=== PATIENT | female | born 2000 | race Caucasian/White ===

== ENCOUNTER 2020-10-15 13:22 | Emergency (ER) | payer MEDICAID ==
[~2020-10-15] VITALS: Ht 157.5 cm; Wt 65.0 kg
[2020-10-15 13:40] VITALS: BP 127/68
[2020-10-15] MEDS ORDERED: ACETAMINOPHEN 325MG TABLET PO STA (14:17)
[2020-10-15] MEDS ORDERED: IBUPROFEN 600MG TABLET PO ONE (14:30)
[2020-10-15 14:53] LABS: BASOPHILS % 0.4 % (0.0-2.0); HEMATOCRIT. 35.9 % (36.0-48.0); HEMOGLOBIN. 12.1 g/dL (12.0-16.0); LYMPHOCYTES % 15.7 % (20.0-50.0); MEAN CORPUSCULAR HEMOGLOBIN 27.5 pg (28.0-32.0); MEAN CORPUSCULAR VOLUME 81.9 fL (81.0-99.0); MEAN PLATELET VOLUME 9.6 fl (7.4-10.4); MONOCYTES % 3.2 % (2.0-8.0); NEUTROPHILS % 80.7 % (40.0-76.0); PLATELET 173 x1000/uL (130-400); RED BLOOD CELL COUNT 4.38 mill/uL (4.2-5.4)
[2020-10-15 14:57] LABS: CHLORIDE 109 mEq/L (98-107)
[2020-10-15 15:07] LABS: HCG SCREEN POSITIVE
[2020-10-16] MEDS ORDERED: IBUP-2030 PO (03:53)
[2020-10-16] MEDS ORDERED: FERR325T23 PO (03:53)
[2020-10-16] MEDS ORDERED: NORE0.3520 MT (03:53)
== END 2020-10-15 15:36 | disposition home or self-care (01) ==
LOC: ER 13:22
DX: O26.93 Pregnancy related conditions, unspecified, third trimester (principal); R10.9 Unspecified abdominal pain; N93.9 Abnormal uterine and vaginal bleeding, unspecified; Z3A.36 36 weeks gestation of pregnancy
CPT/HCPCS: 36415; 76805; 80053; 81025; 84703; 85025; 93005; 99285; Z7610

== ENCOUNTER 2020-10-15 16:05 | Inpatient (IN) | payer MEDICAID ==
[~2020-10-15] VITALS: Ht 157.5 cm; Wt 65.8 kg
[2020-10-15] MEDS ORDERED: BUTORPHANOL TARTRATE 2 MG/ML VIAL IV PRN (16:30)
[2020-10-15] MEDS ORDERED: DEXT 5%/LR + PITOCIN 20UNITS/L 1,000 ML IV SCH ×2 (16:30→18:15)
[2020-10-15] MEDS ORDERED: METHYLERGONOVINE MALEATE 0.2 MG/ML IM PRN (16:30)
[2020-10-15] MEDS ORDERED: LACTATED RINGERS 1,000 ML IV SCH (16:30)
[2020-10-15] MEDS ORDERED: LIDOCAINE HCL 1% 20ML VIAL (Pyxis) INJ INFIL SCH (16:30)
[2020-10-15 16:53] LABS: BASOPHILS % 0.2 % (0.0-2.0); EOSINOPHILS % 0.1 % (0.0-5.0); HEMATOCRIT. 35.1 % (36.0-48.0); HEMOGLOBIN. 11.6 g/dL (12.0-16.0); LYMPHOCYTES % 15.1 % (20.0-50.0); MEAN CORPUSCULAR HEMOGLOBIN 27.1 pg (28.0-32.0); MEAN CORPUSCULAR VOLUME 81.9 fL (81.0-99.0); MEAN PLATELET VOLUME 9.7 fl (7.4-10.4); MONOCYTES % 3.1 % (2.0-8.0); NEUTROPHILS % 81.5 % (40.0-76.0); PLATELET 173 x1000/uL (130-400); RED BLOOD CELL COUNT 4.29 mill/uL (4.2-5.4); RED CELL DISTRIBUTION WIDTH 13.7 % (11.6-14.6)
[2020-10-15] MEDS ORDERED: PENICILLIN G POTASSIUM 5 MMU in DEXT 5% WATER 100 ML IV NR (17:00)
[2020-10-15 17:03] LABS: PARTIAL THROMBOPLASTIN TIME 32.2 sec (23.4-31.0); PROTHROMBIN TIME 10.4 sec (9.6-11.0)
[2020-10-15 17:15] LABS: CLARITY URINE CLEAR (CLEAR); COLOR URINE YELLOW (YELLOW); KETONES URINE 4+ (NEGATIVE); LEUKOCYTE ESTERASE URINE 1+ (NEGATIVE); NITRITE URINE NEGATIVE (NEGATIVE); OCCULT BLOOD URINE TRACE (NEGATIVE); PROTEIN URINE NEGATIVE (NEGATIVE); SPECIFIC GRAVITY URINE 1.012 (1.005-1.030); UROBILINOGEN URINE 0.2 E.U./dL (0.2-1.0)
[2020-10-15 17:24] LABS: CHLORIDE 108 mEq/L (98-107)
[2020-10-15 17:27] LABS: *AMPHETAMINES SCREEN URINE NEGATIVE (NEGATIVE)
[2020-10-15 17:28] LABS: *BARBITURATES SCREEN URINE NEGATIVE (NEGATIVE); *BENZODIAZEPINES SCREEN URINE NEGATIVE (NEGATIVE); *COCAINE SCREEN URINE NEGATIVE (NEGATIVE); METHADONE URINE SCREEN NEGATIVE (NEGATIVE); OPIATES URINE SCREEN NEGATIVE (NEGATIVE); PHENCYCLIDINE URINE SCREEN NEGATIVE (NEGATIVE)
[2020-10-15 17:38] LABS: CANNABINOID URINE SCREEN PRESUMTIVE POSITIVE (NEGATIVE)
[2020-10-15 17:57] LABS: HEPATITIS B SURFACE ANTIGEN NEGATIVE
[2020-10-15] MEDS ORDERED: LANOLIN OINT 7GM TUBE TOP PRN (18:15)
[2020-10-15] MEDS ORDERED: DIPHENHYDRAMINE 25MG CAPSULE PO PRN (18:15)
[2020-10-15] MEDS ORDERED: ACETAMINOPHEN WITH CODEINE 300/30MG TABLET PO PRN (18:15)
[2020-10-15] MEDS ORDERED: IBUPROFEN 400MG TABLET PO PRN (18:15)
[2020-10-15] MEDS ORDERED: GLYCERIN/WITCH HAZEL LEAF MEDICATED PAD TOP PRN (18:15)
[2020-10-15] MEDS ORDERED: HEMORRHOIDAL SUPP PR PRN (18:15)
[2020-10-15] MEDS ORDERED: BENZOCAINE/LANOLIN/ALOE VERA SPRAY TOP PRN (18:15)
[2020-10-15] MEDS ORDERED: POTASSIUM CHLORIDE 20MEQ TABLET SR PO NR (19:15)
[2020-10-15] MEDS: IBUPROFEN 800MG TABLET PO PRN (19:20)
[2020-10-15 20:00] VITALS: BP 99/62
[2020-10-15] MEDS ORDERED: PENICILLIN G POTASSIUM 2.5 MMU in DEXTROSE 5% WATER 50 ML IV SCH (21:00)
[2020-10-15] MEDS ORDERED: DOCUSATE SODIUM 100MG CAPSULE PO SCH (21:00)
[2020-10-15] MEDS ORDERED: INFLUENZA VACCINE 05/PF 0.5 ML VIAL IM ONE (22:45)
[2020-10-15] MEDS ORDERED: TETANUS, DIPHTHERIA, PERTUSSIS VAC/PF 0.5ML (>7YR OLD) IM ONE (22:45)
[2020-10-16] MEDS ORDERED: FERR325T23 PO (03:53)
[2020-10-16] MEDS ORDERED: NORE0.3520 MT (03:53)
[2020-10-16] MEDS ORDERED: IBUP-2030 PO (03:53)
[2020-10-16 04:00] VITALS: BP 96/58
[2020-10-16 07:30] VITALS: BP 105/62
[2020-10-16] MEDS ORDERED: FERROUS SULFATE 325MG TABLET PO SCH (07:30)
[2020-10-16 08:24] LABS: BASOPHILS % 0.1 % (0.0-2.0); EOSINOPHILS % 0.1 % (0.0-5.0); HEMATOCRIT. 31.4 % (36.0-48.0); HEMOGLOBIN. 10.8 g/dL (12.0-16.0); LYMPHOCYTES % 14.8 % (20.0-50.0); MEAN CORPUSCULAR VOLUME 81.2 fL (81.0-99.0); MEAN PLATELET VOLUME 9.7 fl (7.4-10.4); MONOCYTES % 3.6 % (2.0-8.0); NEUTROPHILS % 81.4 % (40.0-76.0); PLATELET 162 x1000/uL (130-400); RED BLOOD CELL COUNT 3.86 mill/uL (4.2-5.4); RED CELL DISTRIBUTION WIDTH 13.8 % (11.6-14.6)
[2020-10-16] MEDS: IBUPROFEN 800MG TABLET PO PRN (08:51)
[2020-10-16] MEDS ORDERED: PRENATAL VIT/FE FUMARATE/FA TABLET PO SCH (09:00)
[2020-10-16 15:30] VITALS: BP 102/62
[2020-10-21 16:39] LABS: CANNABINOID CONFIRMATION URINE Positive (.)
== END 2020-10-16 18:30 | disposition home or self-care (01) | DRG 560 ==
LOC: OBSVTOIN 16:05 → 8 EST LDRP 16:05 → 8EST 20:32
PROVIDERS: ADMIT Specialist; ATTEND Specialist
PROC: 10E0XZZ Delivery of Products of Conception, External Approach (ICD-10-PCS; principal; 2020-10-16)
PROC: 0W8NXZZ Division of Female Perineum, External Approach (ICD-10-PCS; 2020-10-16)
DX: O99.02 Anemia complicating childbirth (principal); F12.10 Cannabis abuse, uncomplicated; D64.9 Anemia, unspecified; O99.324 Drug use complicating childbirth; Z83.3 Family history of diabetes mellitus; Z37.0 Single live birth; Z3A.36 36 weeks gestation of pregnancy
CPT/HCPCS: 36415; 80053; 80305; 80349; 81003; 85025; 86592; 86703; 86762; 86850; 86900; 87340; 88307; 99281; G0378; J2540; J2590; J3490; J7060; J7120